=== PATIENT | female | born 1990 | race Caucasian/White ===

== ENCOUNTER 2016-09-15 20:16 | Emergency (ER) | payer BC, MEDICAID ==
[~2016-09-15] VITALS: Ht 165.1 cm; Wt 89.2 kg
[2016-09-15 20:17] VITALS: BP 119/82
[2016-09-15] MEDS ORDERED: KETOROLAC 60 MG/2 ML IM ONE (21:00)
[2016-09-15] MEDS ORDERED: MAALOX/HYOSCYAMINE/LIDOCAINE 45 ML BTL PO ONE (21:00)
[2016-09-15] MEDS ORDERED: ONDANSETRON ODT 4 MG PO ONE (21:00)
[2016-09-15] MEDS ORDERED: KETOROLAC 30 MG/1 ML ONE (21:20)
[2016-09-15] MEDS ORDERED: MAALOX/HYOSCYAMINE/LIDOCAINE 45 ML BTL ONE (21:20)
[2016-09-15] MEDS ORDERED: ONDANSETRON ODT 4 MG ONE (21:20)
== END 2016-09-15 21:39 | disposition home or self-care (01) ==
LOC: ED 21:20
DX: R19.7 Diarrhea, unspecified (principal); R11.10 Vomiting, unspecified
CPT/HCPCS: 96372; 99283; J1885; Q0162